=== PATIENT | male | born 1960 | race Caucasian/White ===

== ENCOUNTER 2016-11-28 00:01 | Inpatient (IN) | payer OTHER ==
[~2016-11-28] VITALS: Ht 175.3 cm; Wt 74.8 kg
[2016-11-28] VITALS (7 sets, daily range): BP systolic 105–128; BP diastolic 72–87
[~2016-11-28 00:01] MED LIST: AMLODIPINE BES2.5 M1 PO; DULOXETINE30 MG PO; LACTULOSE10 GM/152 PO; METFORMIN HCL500 MG PO; MINTOX PLUS1 CTB PO; NITROGLYCERIN0.4 MG SL; PRILOSEC20 MG PO; SIMVASTATIN20 M1 PO; SUCRALFATE1 GM PO
[2016-11-28 01:00] LABS: BASOPHIL % 0.4 % (0-2); PLATELET COUNT 144 x10^3mcL (130-400); RED CELL DISTRIBUTION WIDTH 13.4 % (11.5-14.5)
[2016-11-28 01:09] LABS: CALCIUM 8.9 mg/dL (8.5-10.1); CARBON DIOXIDE 30.1 mmol/L (21-32); CHLORIDE SERUM 105 mmol/L (98-107); CREATININE SERUM 0.8 mg/dL (0.7-1.3); GFR1 > 60 mL/min; GLUCOSE SERUM 174 mg/dL (74-106); POTASSIUM SERUM 3.6 mmol/L (3.5-5.1); SODIUM SERUM 140 mmol/L (136-145)
[2016-11-28 01:14] LABS: ALKALINE PHOSPHATASE 54 U/L (46-116); ALT/SGPT 10 U/L (16-63); AST/SGOT 14 U/L (15-37); CHOLESTEROL 151 mg/dL (<200); TOTAL PROTEIN, SERUM 7.4 g/dL (6.4-8.2)
[2016-11-28] MEDS ORDERED: TYLENOL325 M1 PO (01:25)
[2016-11-29 05:19] LABS: AMPHETAMINE QUAL UR NONE DETECTED (NEG <=1000)
[2016-11-29 05:51] VITALS: BP 108/68
[2016-11-29 07:13] LABS: BASOPHIL % 0.3 % (0-2); PLATELET COUNT 139 x10^3mcL (130-400); RED CELL DISTRIBUTION WIDTH 13.6 % (11.5-14.5)
[2016-11-29 07:49] LABS: ALBUMIN 3.8 g/dL (3.4-5.0); ALKALINE PHOSPHATASE 52 U/L (46-116); ALT/SGPT 22 U/L (16-63); AST/SGOT 11 U/L (15-37); CALCIUM 8.9 mg/dL (8.5-10.1); CARBON DIOXIDE 28.8 mmol/L (21-32); CHLORIDE SERUM 105 mmol/L (98-107); CREATININE SERUM 0.7 mg/dL (0.7-1.3); GFR1 > 60 mL/min; GLUCOSE SERUM 140 mg/dL (74-106); POTASSIUM SERUM 4.1 mmol/L (3.5-5.1); SODIUM SERUM 140 mmol/L (136-145); T4(THYROXINE) 7.5 ug/dL (4.7-13.3); TOTAL PROTEIN, SERUM 7.1 g/dL (6.4-8.2)
[2016-11-29 09:25] VITALS: BP 123/79
[2016-11-29 09:47] LABS: ERYTHROCYTE SED RATE 7 mm/hr (0-20)
[2016-11-29 11:55] VITALS: Ht 175.3 cm; Wt 74.8 kg
[2016-11-29 12:55] VITALS: BP 127/83
[2016-12-01 17:18] LABS: RHEUMATOID ARTHRITIS FACTOR <10.0 IU/mL (0.0-13.9)
[2016-12-02 08:18] LABS: RAPID PLASMA REAGIN Non Reactive (Non Reactive)
== END 2016-11-29 18:24 | disposition other institution (70) | DRG 193 ==
LOC: ED 00:01 → DU 02:45
PROVIDERS: Emergency Medicine; ADMIT Internal Medicine
DX: J18.9 Pneumonia, unspecified organism (principal); G93.41 Metabolic encephalopathy; E78.5 Hyperlipidemia, unspecified; E11.9 Type 2 diabetes mellitus without complications; F99 Mental disorder, not otherwise specified; Z79.84 Long term (current) use of oral hypoglycemic drugs
CPT/HCPCS: 80307; 82962; 83880; 86431; G0480; J1956; J7040; Q0092